=== PATIENT | male | born 1950 | race Caucasian/White ===

== ENCOUNTER 2021-06-07 12:07 | Inpatient (IN) | payer MEDICARE, SELFPAY ==
[2021-06-07] MEDS ORDERED: Ondansetron PF 4 MG/2 ML Vial ONE (14:30)
[2021-06-07] MEDS ORDERED: Glycopyrrolate 0.2 MG/ML 5 ML SYRINGE ONE (14:30)
[2021-06-07] MEDS ORDERED: Dexamethasone 20 MG/5 ML VIAL ONE (14:30)
[2021-06-07] MEDS ORDERED: Succinylcholine 200 MG/10 ml SYRINGE FS ONE (14:30)
[2021-06-07] MEDS ORDERED: PROPOFOL 200 MG/20 ML VIAL ONE (14:30)
[2021-06-07] MEDS ORDERED: Rocuronium Bromide 10 MG/ML (10ML VIAL) ONE (14:30)
[2021-06-07] MEDS ORDERED: Lidocaine 1% PF 5 ML VIAL ONE (14:30)
[2021-06-07] MEDS ORDERED: Ketorolac Tromethamine 30 MG/ML VIAL ONE (14:30)
[2021-06-07] MEDS ORDERED: Ondansetron HCl/PF 4 MG/2 ML Vial IVP PRN (15:02)
[2021-06-07] MEDS ORDERED: HYDROmorphone 2 MG/ML VIAL SLOW IVP PRN (15:02)
[2021-06-07] MEDS ORDERED: Promethazine HCl 25 MG/ML VIAL IVPB PRN (15:02)
[2021-06-07] MEDS ORDERED: Promethazine HCl 25 MG/ML VIAL IM PRN (15:02)
[2021-06-07 15:03] VITALS: BMI 36.2
[2021-06-07] MEDS ORDERED: Dextrose 5% in Water 1,000 ML IV PRN (15:24)
[2021-06-07] MEDS ORDERED: Ondansetron ODT 4 MG TAB PO PRN (15:24)
[2021-06-07] MEDS ORDERED: Ondansetron PF 4 MG/2 ML Vial IVP PRN (15:24)
[2021-06-07] MEDS ORDERED: hydrALAZINE 20 MG/ML VIAL SLOW IVP PRN (15:24)
[2021-06-07] MEDS ORDERED: Morphine 4 MG/ML VIAL SLOW IVP PRN ×2 (15:24→17:22)
[2021-06-07] MEDS ORDERED: Dextrose 50% Abboject 50 ML SYRINGE SLOW IVP PRN (15:24)
[2021-06-07] MEDS ORDERED: HumaLOG 300 UNITS/3 ML VIAL SC PRN (15:24)
[2021-06-07] MEDS ORDERED: Lorazepam 2 MG/ML VIAL SLOW IVP PRN (15:24)
[2021-06-07] MEDS ORDERED: HYDROcodone/Acetaminophen 5/325 mg Tablet PO PRN (15:30)
[2021-06-07] MEDS ORDERED: traMADol HCl 50 MG TAB PO PRN (15:30)
[2021-06-07] MEDS ORDERED: Acetaminophen 500 MG TAB PO PRN (15:30)
[2021-06-07] MEDS: 1/2 NS w/KCL 20 mEq 1,000 ML IV SCH ×2 (17:49→23:53)
[2021-06-07] MEDS: Famotidine 20 MG TAB PO SCH (20:27)
[2021-06-07] MEDS ORDERED: Atorvastatin Calcium 40 MG TAB PO SCH (21:00)
[2021-06-07] MEDS ORDERED: Lisinopril 20 MG TAB PO SCH (21:00)
[2021-06-07] MEDS ORDERED: Enoxaparin Sodium 40 MG/0.4 ML SYRINGE SC SCH (21:00)
[2021-06-07] MEDS ORDERED: FLUoxetine HCl 20 MG CAP PO SCH (21:00)
[2021-06-08 05:35] LABS: #Lymphocytes 0.7 thou/uL (1.20-3.40); #Monocytes 0.8 thou/uL (0.11-0.59); #Neutrophils 7.3 thou/uL (1.40-6.50); %Basophils 0.1 % (0.0-1.0); %Eosinophils 0.1 % (0.0-10.0); %Lymphocytes 8.3 % (21.0-51.0); %Monocytes 8.9 % (0.0-10.0); %Neutrophils 82.6 % (42.0-75.0); Hemoglobin 15.3 g/dL (14.0-18.0); Mean Corpuscular Hemoglobin 32.5 pg (27.0-31.0); Mean Corpuscular Volume 92.8 fL (78.0-98.0); Mean Platelet Volume 7.3 fL (7.4-10.4); Platelet Count 218 thou/uL (130-400); RBC Distribution Width 12.7 % (11.5-14.5); Red Blood Cell (RBC) Count 4.72 mill/uL (4.70-6.10); White Blood Cell (WBC) Count 8.8 thou/uL (4.8-10.8)
[2021-06-08 05:42] LABS: Hemoglobin A1c 5.7 % (4.0-6.0)
[2021-06-08 05:58] LABS: Anion Gap 12 mmol/L (10-20); BUN (Urea Nitrogen) 43 mg/dL (8.4-25.7); Calc. Creatinine Clearance 99 mL/min (70-130); Carbon Dioxide 28 mmol/L (23-31); Chloride 100 mmol/L (98-107); Glucose 127 mg/dL (80-115); Potassium 3.4 mmol/L (3.5-5.1); Sodium 137 mmol/L (136-145)
[2021-06-08] MEDS: 1/2 NS w/KCL 20 mEq 1,000 ML IV SCH (06:15)
[2021-06-08] MEDS ORDERED: FLUoxetine HCl 20 MG CAP PO SCH (08:00)
[2021-06-08] MEDS ORDERED: Potassium Chloride 20 MEQ TAB PO SCH (08:00)
[2021-06-08 08:01] VITALS: BP 124/79; TEMP 98.6
[2021-06-08] MEDS: Famotidine 20 MG TAB PO SCH (08:17)
[2021-06-08] MEDS ORDERED: Atenolol 50 MG TAB PO SCH (09:00)
[2021-06-08] MEDS ORDERED: Aspirin 81 mg Enteric Coated Tablet PO SCH (09:00)
[2021-06-08] MEDS ORDERED: Multivit, Therapeutic 1 TAB PO SCH (09:00)
[2021-06-08] MEDS ORDERED: Amlodipine 10 MG TAB PO SCH (09:00)
[2021-06-08] MEDS ORDERED: metFORMIN 500 MG TAB PO SCH (17:00)
== END 2021-06-08 11:39 | disposition home or self-care (01) | DRG 354 ==
LOC: SJX 12:07 → SURG A 15:24
PROVIDERS: ADMIT Specialist; ATTEND Specialist
PROC: 0WQF0ZZ Repair Abdominal Wall, Open Approach (ICD-10-PCS; principal; 2021-06-07)
PROC: 0DBU0ZZ Excision of Omentum, Open Approach (ICD-10-PCS; 2021-06-07)
DX: K43.6 Other and unspecified ventral hernia with obstruction, without gangrene (principal); N17.9 Acute kidney failure, unspecified; E11.9 Type 2 diabetes mellitus without complications; I10 Essential (primary) hypertension; E86.0 Dehydration; E66.01 Morbid (severe) obesity due to excess calories; Z68.36 Body mass index [BMI] 36.0-36.9, adult
CPT/HCPCS: 36415; 36416; 80048; 83036; 85025; J1100; J1650; J1815; J1885; J2405; J2704; J3480